=== PATIENT | male | born 1985 | race Caucasian/White ===

== ENCOUNTER 2019-11-25 04:34 | Inpatient (IN) ==
[2019-11-25 05:04] LABS: Bilirubin,Urine Negative (Negative); Blood,Urine Negative (Negative); Clarity,Urine Clear (Clear); Color,Urine Yellow (Yellow); Glucose,Urine (UA) Normal (Normal); Ketones,Urine Negative (Negative); Leukocyte Esterase,Urine Negative (Negative); Nitrite,Urine Negative (Negative); Protein,Urine 30 mg/dL (Neg-Trace); Specific Gravity,Urine 1.025 (1.010-1.025); Urobilinogen,Urine Normal (Normal)
[2019-11-25 05:05] LABS: Bacteria,Urine None Seen per hpf (None-Few); Hyaline Casts,Urine None Seen per lpf (None-Few); RBC,Urine 0-3 per hpf (0-3); Squamous Epithelial Cell,Urine Few per lpf (None-Few); WBC,Urine 0-3 per hpf (0-3)
[2019-11-25 05:07] LABS: Amphetamine Screen,Urine Negative ng/mL (Cutoff=1000); Barbiturate Screen,Urine Negative ng/mL (Cutoff=200); Benzodiazepines Screen,Urine Negative ng/mL (Cutoff=200); Cannabinoid Screen,Urine Negative ng/mL (Cutoff = 50); Cocaine Screen,Urine Negative ng/mL (Cutoff= 300); Opiate Screen,Urine Negative ng/mL (Cutoff=300); Phencyclidine Screen,Urine Negative ng/mL (Cutoff=25)
[2019-11-25 05:27] LABS: Basophils % 0.5 %; Eosinophils % 0.7 %; Hematocrit 51.3 % (37.5-50.1); Hemoglobin 17.6 g/dL (12.9-16.9); Immature Granulocytes % 0.5 % (0-4); Lymphocytes # 1.1 K/mcL (0.6-4.6); Lymphocytes % 19.6 %; Mean Corpuscular HGB Conc 34.3 g/dL (31.6-35.5); Mean Corpuscular Hemoglobin 30.1 pg (28.0-33.3); Mean Corpuscular Volume 87.7 fL (83.0-100.0); Mean Platelet Volume 9.6 fL (9.4-12.4); Monocytes % 17.2 %; Neutrophils # 3.5 K/mcL (1.6-8.9); Platelet Count 223 K/mcL (140-400); Red Blood Count 5.85 M/mcL (4.19-5.50); Red Cell Distribution Width 12.2 % (11.5-14.5); Segmented Neutrophils % 61.5 %; White Blood Count 5.7 K/mcL (4.3-11.1)
[2019-11-25 05:48] LABS: Acetaminophen < 10 mcg/mL (10-20); BUN/Creatinine Ratio 10 (6-26); Blood Urea Nitrogen 10 mg/dL (6-20); Calcium 9.1 mg/dL (8.6-10.3); Carbon Dioxide 29 mEq/L (23-29); Chloride 101 mEq/L (98-107); Ethanol < 10 mg/dL (Less than 10); Glucose 92 mg/dL (70-105); Osmolality,Calculated 285 (280-300); Potassium 3.6 mEq/L (3.5-5.1); Salicylate < 2.5 mg/dL (15.0-30.0); Sodium 138 mEq/L (136-145); eGFR For African Americans > 60 (> 60); eGFR For Non-African Americans > 60 (> 60)
[2019-11-25] MEDS ORDERED: MOM Conc 10 ML UD.LIQ PO PRN (07:06)
[2019-11-25] MEDS ORDERED: Haloperidol Lactate 5 MG/ML VIAL IM PRN (07:06)
[2019-11-25] MEDS ORDERED: traZODone 50 MG TABLET PO PRN (07:06)
[2019-11-25] MEDS ORDERED: *HR* LORazepam 1 MG TABLET PO PRN (07:06)
[2019-11-25] MEDS ORDERED: Acetaminophen 325 MG TABLET PO PRN (07:06)
[2019-11-25] MEDS ORDERED: Mag Hydrox/Al Hydrox/Simeth 30 ML UDC PO PRN (07:06)
[2019-11-25] MEDS ORDERED: *HR* LORazepam 2 MG/ML VIAL IM PRN (07:06)
[2019-11-25] MEDS ORDERED: hydrOXYzine pamoate 25 MG CAPSULE PO PRN (07:06)
[2019-11-25] MEDS: risperiDONE 1 MG TABLET PO SCH ×2 (13:38→21:11)
[2019-11-25] MEDS: Venlafaxine XR (24 HR) 150 MG CAP.ER.24H PO SCH (13:38)
[2019-11-25 21:40] LABS: Creatine Kinase 327 Units/L (30-223)
[2019-11-25 21:41] LABS: Troponin I < 0.03 ng/mL (< 0.04)
[2019-11-26] MEDS: Aspirin 81 MG TAB.CHEW PO SCH (09:08)
[2019-11-26] MEDS: Venlafaxine XR (24 HR) 150 MG CAP.ER.24H PO SCH (09:08)
[2019-11-26] MEDS: risperiDONE 1 MG TABLET PO SCH ×2 (09:08→20:22)
[2019-11-27] MEDS: Aspirin 81 MG TAB.CHEW PO SCH (09:43)
[2019-11-27] MEDS: Venlafaxine XR (24 HR) 150 MG CAP.ER.24H PO SCH (09:43)
[2019-11-27] MEDS: risperiDONE 1 MG TABLET PO SCH (09:44)
[2019-11-27 09:46] VITALS: BP 161/101
[2019-11-27] MEDS ORDERED: risperiDONE 1 MG TABLET PO SCH (21:00)
[2019-11-28] MEDS ORDERED: risperiDONE 1 MG TABLET PO SCH (09:00)
== END 2019-11-27 15:00 | disposition home or self-care (01) | DRG 885 ==
LOC: 1ANU 04:34 → EMEROOARM 04:34 → 1ANU 08:21
PROVIDERS: ADMIT Psychiatry & Neurology Psychiatry; ATTEND Psychiatry & Neurology Psychiatry